=== PATIENT | male | born 1980 | race Hispanic/Latino ===

== ENCOUNTER 2019-10-10 06:53 | Outpatient (CLI) | payer BC ==
[2019-10-10 11:24] LABS: Bacteria/HPF None Seen HPF (None Seen); Bilirubin Negative (Negative); Blood, Urine Negative (Negative); Clarity Clear (Clear); Glucose, Urine (Dipstick) Normal (Negative); Leukocyte Negative Leu/uL (Negative); Nitrite Negative (Negative); Protein, Urine (Dipstick) Negative (Neg-Trace); RBC/HPF 0-3 HPF (0-3); Squamous Epithelial None Seen HPF (0-3); Urobilinogen Normal mg/dL (Less than 2); WBC/HPF None Seen HPF (0-3)
[2019-10-10 11:27] LABS: #Eosinphils 0.1 thou/uL (0.0-0.7); #Lymphocytes 2.4 thou/uL (1.20-3.40); #Monocytes 0.6 thou/uL (0.11-0.59); #Neutrophils 4.5 thou/uL (1.40-6.50); %Basophils 0.5 % (0.0-1.0); %Eosinophils 1.2 % (0.0-10.0); %Monocytes 8.3 % (0.0-10.0); %Neutrophils 58.9 % (42.0-75.0); Mean Corpuscular HGB CONC 33.6 g/dL (32.0-36.0); Mean Corpuscular Hemoglobin 30.7 pg (27.0-31.0); Mean Corpuscular Volume 91.3 fL (78.0-98.0); Mean Platelet Volume 7.4 fL (7.4-10.4); Platelet Count 252 thou/uL (130-400); RBC Distribution Width 11.3 % (11.5-14.5); Red Blood Cell (RBC) Count 5.21 mill/uL (4.70-6.10); White Blood Cell (WBC) Count 7.6 thou/uL (4.8-10.8)
[2019-10-10 11:46] LABS: Anion Gap 10 mmol/L (10-20); BUN (Urea Nitrogen) 13 mg/dL (8.9-20.6); Calc. Creatinine Clearance 0 mL/min (70-130); Carbon Dioxide 28 mmol/L (22-29); Chloride 102 mmol/L (98-107); Estimated GFR-MDRD 68; Glucose 78 mg/dL (70-105); Potassium 4.3 mmol/L (3.5-5.1); Sodium 136 mmol/L (136-145)
== END 2019-10-10 06:54 | disposition home or self-care (01) ==
LOC: LABBT 06:53
PROVIDERS: ATTEND Orthopaedic Surgery
DX: Z01.812 Encounter for preprocedural laboratory examination (principal); S29.011A Strain of muscle and tendon of front wall of thorax, initial encounter
CPT/HCPCS: 80048; 81001; 85025

== ENCOUNTER 2019-10-12 08:33 | Day surgery (SDC) | payer BC ==
[2019-10-10 09:50] VITALS: BMI 32.8
[2019-10-12] MEDS ORDERED: Lidocaine 1% (PF) 30 ML VIAL ONE (10:01)
[2019-10-12] MEDS ORDERED: Fentanyl 100 MCG/2 ML VIAL ONE ×2 (10:01→13:39)
[2019-10-12] MEDS ORDERED: Midazolam HCl 2 mg/2 ml Vial ONE (10:01)
[2019-10-12] MEDS ORDERED: Ondansetron PF 4 MG/2 ML Vial IVP PRN (11:27)
[2019-10-12] MEDS ORDERED: Promethazine HCl 25 MG/ML VIAL IM PRN (11:27)
[2019-10-12] MEDS ORDERED: Acetaminophen 325 MG TAB PO PRN (11:27)
[2019-10-12] MEDS ORDERED: Zolpidem Tartrate 5 MG TAB PO PRN (11:27)
[2019-10-12] MEDS ORDERED: Ropivacaine 0.2% 550 ML 550 ML NERVE BLCK SCH (11:27)
[2019-10-12] MEDS ORDERED: Ketorolac Tromethamine 30 MG/ML VIAL IVP PRN (11:27)
[2019-10-12] MEDS ORDERED: Fentanyl 100 MCG/2 ML VIAL SLOW IVP PRN (11:28)
[2019-10-12] MEDS ORDERED: PROPOFOL 200 MG/20 ML VIAL ONE (12:21)
[2019-10-12] MEDS ORDERED: Lidocaine 1% PF 5 ML VIAL ONE (12:21)
[2019-10-12] MEDS ORDERED: Ropivacaine 0.5% HCl/PF (150 MG/30 ML VIAL) ONE (12:21)
[2019-10-12] MEDS ORDERED: Ketorolac Tromethamine 30 MG/ML VIAL ONE ×2 (12:21→13:33)
[2019-10-12] MEDS ORDERED: Ropivacaine 0.2% HCl/PF (40 MG/20 ML VIAL) ONE (12:21)
[2019-10-12] MEDS ORDERED: PHENYLEPHRINE-NS 100 MCG/ML 10 ML SYRINGE ONE (12:21)
[2019-10-12] MEDS ORDERED: Rocuronium Bromide 10 MG/ML (10ML VIAL) ONE (12:21)
[2019-10-12] MEDS ORDERED: HYDROcodone/Acetaminophen 5/325 mg Tablet ONE (14:27)
[2019-10-12] MEDS ORDERED: Promethazine HCl 25 MG/ML VIAL ONE (14:29)
[2019-10-12] MEDS ORDERED: Morphine 2 MG/ML SYRINGE ONE (14:30)
[2019-10-12] MEDS ORDERED: Sodium Chloride 0.9% 0 ML ONE (14:31)
--- NOTE | 2019-10-16 12:20 | OP ---
DATE OF PROCEDURE: 10/12/2019 PREOPERATIVE DIAGNOSIS: Left pectoralis major repair. POSTOPERATIVE DIAGNOSIS: Left pectoralis major sternal head rupture with intact clavicular head. PROCEDURE PERFORMED: Left pectoralis major repair. [employer] SUPERVISOR: Yary White PA-C ANESTHESIOLOGIST: Trevor. ANESTHESIA: The patient received general endotracheal intubation with an interscalene block. ESTIMATED BLOOD LOSS: 100 mL. TOURNIQUET TIME: None. IMPLANTS: [employer] Delivery Systems with 3 suture buttons and three #5 Ethibond, FiberTape in and out. ANTIBIOTICS: Ancef 2 g. COMPLICATIONS: None. INDICATIONS FOR PROCEDURE: Mr. Warren is a 39-year-old male. 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 The patient was injured himself on 08/20 doing dumbbell bench felt a pop. The patient had researched to go into [facility] and went home. I discussed the benefits of fixing it acutely when I saw him in August. The patient desired to go to his trip and treated nonoperatively. The patient called while [place], desired that he said he wanted to have it fixed while he was there. I discussed with him the risks and benefits of delayed repair to include pain, scar, bleeding, infection, damage to vital structures, decreased range of motion and strength, need for allograft, damage to vital structures, loss of life or limb, failure of repair, pain, need for further surgery. The patient understood the risks and benefits and elected to proceed. DESCRIPTION OF PROCEDURE: Time-out was performed designating the patient's left upper extremity as the operative site based on site, consents, and marking. After time-out, the patient's lower was prepped and draped in sterile fashion. I made an incision to deltopectoral interval about 2 cm or 3 cm distal to his coracoid as the coracoid was the basis for finding his conjoined. I was able to dissect and find a muscular plane, which was actually deltopectoral interval, but the interval was from the sternal head which we dissected down, found the fascial plane, came underneath the humerus to ensure positioning and finding our head. We followed the sternal head down and had really no tear in insertion of the pec investing portion of the sternal head, which was more superior as it rotated under the clavicular head and was ruptured off. We found the biceps. We developed the plane on the lateral side using the fascia that was remaining from the previous insertion of the patient's pec. We cleaned footprint and placed 3 drill holes. We then moved back from the pec. We elevated the clavicular head and used our finger to find the stem of the pec. We placed some at the superior edge of the lot more muscular portion and placed some tapes which then I turned into a #5 FiberWire sutures. We passed up and down to incorporate and get both the anterior as there was a peel back section of the fascia which we incorporated together to get more tenderness portion inferiorly. After completion of this and availing, I had good overall control of the pec and we went back, drilled 3 holes about 1 cm across offset and decreased the risk of a stress riser and potential fracture. I passed the tightrope systems into the bone and sequentially tying from inferior to superior. I was able to get the pec almost even with little bit of abduction and extension and got the pec essentially back to where this fascial plane was not able to get all the way down to the bone, the superior edge was touching the bone and the two inferior sutures were sewed about 2 to 3 mm of suture, but were approximated to its origin of the tear. We sewed knots on top and cut all 3 limbs. We then washed and then closed the deltopectoral interval with 0 Vicryl, 2-0 for skin and then millie. The patient was placed in in abduction pillow, elbow, wrist, and hand motion. We will start range of motion along this and gently stretch his pec out of time to allow healing over the next 2 weeks. I am concerned about potential biceps rupture as well as I am concerned about the time it will take his to stretch out his pec because of the chronicity and will take some time for that to occur. Job ID: [id number] [facility]
== END 2019-10-12 16:12 | disposition home or self-care (01) ==
LOC: SDC 08:33
PROVIDERS: ATTEND Orthopaedic Surgery
PROC: 0LR Tendons, Replacement (ICD-10-PCS; principal; 2019-10-12)
PROC: 3E0T3BZ Introduction of Anesthetic Agent into Peripheral Nerves and Plexi, Percutaneous Approach (ICD-10-PCS; principal; 2019-10-12)
DX: S29.011A Strain of muscle and tendon of front wall of thorax, initial encounter (principal); G89.18 Other acute postprocedural pain; X50.0XXA Overexertion from strenuous movement or load, initial encounter
CPT/HCPCS: A4306; J0690; J1885; J2001; J2250; J2270; J2550; J2704; J2795; J3010